=== PATIENT | female | born 1980 | race Caucasian/White ===

== ENCOUNTER 2021-09-04 07:20 | Emergency (ER) | payer OTHER ==
[~2021-09-04 07:20] MED LIST: ENBREL50 MG/1 ML SC; NORCO 5-325 TA1 EACH PO; PROBIOTIC1 EAC1 PO; SYNTHROID75 MCG PO; VIBRAMYCIN100 MG PO; VITAMIN D1000 UNIT PO; VOLTAREN **OUT75 MG PO; ZOFRAN4 MG PO
[2021-09-04 08:04] LABS: BASOPHIL 0.2 % (0-2); EOSINOPHIL 0.8 % (0-5); HGB 12.9 g/dl (12.5-16.0); MCHC 33.1 g/dL (32.0-36.0); MCV 96.8 fL (78.0-100.0); MONOCYTE 5.7 % (0-12); MPV 10.2 fL (6.0-9.5); NEUTROPHIL 66.1 % (41-80); NRBC 0; PLT 249 K/uL (150-400); RBC 4.03 M/uL (4.20-5.40); RDW 12.1 % (11.5-14.0); WBC 8.5 K/uL (4.0-10.5)
[2021-09-04 08:44] LABS: ALBUMIN 3.4 g/dL (3.4-5.0); BILIRUBIN - TOTAL 0.5 mg/dL (0.2-1.0); BUN/CREAT RATIO (CALC) 11.6 RATIO; CREATININE 0.86 mg/dL (0.51-0.95); GLOBULIN (CALCULATION) 3.7 g/dL; POTASSIUM 3.9 mmol/L (3.5-5.1); TOTAL PROTEIN 7.1 g/dL (6.4-8.2)
[2021-09-04 10:32] LABS: BILIRUBIN NEGATIVE (NEGATIVE); BLOOD TRACE-INTACT Ery/uL (NEGATIVE); CLARITY CLEAR (CLEAR); COLOR YELLOW (YELLOW); GLUCOSE (U) NORMAL (NORMAL); LEUKOCYTES NEGATIVE Leu/uL (NEGATIVE); NITRITE NEGATIVE (NEGATIVE); PROTEIN NEGATIVE (NEGATIVE); SPECIFIC GRAVITY 1.025 (1.001-1.030); UROBILINOGEN 0.2 mg/dL (0.2-1.0)
[2021-09-04 10:41] LABS: BACTERIA 1+
[2021-09-04] MEDS ORDERED: NORCO 5-325 TA1 EACH PO (13:22)
[2021-09-04] MEDS ORDERED: NAPROXEN500 MG PO (13:24)
== END 2021-09-04 13:40 | disposition home or self-care (01) ==
LOC: FER 07:20
PROVIDERS: Emergency Medicine
DX: N83.201 Unspecified ovarian cyst, right side (principal); F17.210 Nicotine dependence, cigarettes, uncomplicated
CPT/HCPCS: 36415; 76830; 80053; 81001; 82150; 83690; 85025; J1170; J2405; J7030

== ENCOUNTER 2021-09-19 18:55 | Emergency (ER) | payer OTHER ==
[~2021-09-19 18:55] MED LIST changes: +NAPROXEN500 MG PO
[2021-09-19 21:51] LABS: BASOPHIL 0.5 % (0-2); EOSINOPHIL 1.9 % (0-5); HCT 42.3 % (37.0-47.0); HGB 13.9 g/dl (12.5-16.0); LYMPHOCYTE 54.8 % (15-48); MCH 32.4 pg (25.0-31.0); MCHC 32.9 g/dL (32.0-36.0); MCV 98.6 fL (78.0-100.0); MONOCYTE 10.1 % (0-12); MPV 10.7 fL (6.0-9.5); NEUTROPHIL 32.4 % (41-80); NRBC 0; PLT 245 K/uL (150-400); RBC 4.29 M/uL (4.20-5.40); RDW 12.2 % (11.5-14.0); WBC 6.4 K/uL (4.0-10.5)
[2021-09-19 22:11] LABS: ALBUMIN 3.9 g/dL (3.4-5.0); BILIRUBIN - TOTAL 0.2 mg/dL (0.2-1.0); BUN/CREAT RATIO (CALC) 9.4 RATIO; CREATININE 0.85 mg/dL (0.51-0.95); GLOBULIN (CALCULATION) 3.7 g/dL; POTASSIUM 3.4 mmol/L (3.5-5.1); TOTAL PROTEIN 7.6 g/dL (6.4-8.2)
[2021-09-19 22:14] LABS: BILIRUBIN NEGATIVE (NEGATIVE); BLOOD TRACE-INTACT Ery/uL (NEGATIVE); CLARITY CLEAR (CLEAR); COLOR YELLOW (YELLOW); GLUCOSE (U) NORMAL (NORMAL); LEUKOCYTES NEGATIVE Leu/uL (NEGATIVE); NITRITE NEGATIVE (NEGATIVE); PROTEIN NEGATIVE (NEGATIVE); SPECIFIC GRAVITY >=1.030 (1.001-1.030); UROBILINOGEN 0.2 mg/dL (0.2-1.0); pH 5.5 (5.0-9.0)
[2021-09-19 22:21] LABS: AMORPHOUS URATES CRYSTALS TRACE; BACTERIA TRACE; URINARY WBC RARE
== END 2021-09-19 23:37 | disposition home or self-care (01) ==
LOC: FER 18:55
PROVIDERS: Nurse Practitioner Family
DX: U07.1 COVID-19 (principal); F17.210 Nicotine dependence, cigarettes, uncomplicated; Z23 Encounter for immunization
CPT/HCPCS: 36415; 80053; 81001; 85025; J7030; M0243; Q0244